=== PATIENT | female | born 1980 | race Caucasian/White ===

== ENCOUNTER 2025-03-14 09:08 | Day surgery (SDC) | payer OTHER ==
[2025-03-12 15:45] VITALS: BMI 30.3
[2025-03-14 09:35] VITALS: PULSE 66; TEMP 97.7
[2025-03-14 12:45] VITALS: RESP 20
[2025-03-14 13:08] VITALS: BP 148/78
== END 2025-03-14 12:45 | disposition home or self-care (01) ==
LOC: FASU-ENDO 09:08
PROVIDERS: ATTEND Internal Medicine Gastroenterology
PROC: 0DB68ZX Excision of Stomach, Via Natural or Artificial Opening Endoscopic, Diagnostic (ICD-10-PCS; 2025-03-14)
PROC: 0DB48ZX Excision of Esophagogastric Junction, Via Natural or Artificial Opening Endoscopic, Diagnostic (ICD-10-PCS; 2025-03-14)
PROC: 0DB98ZX Excision of Duodenum, Via Natural or Artificial Opening Endoscopic, Diagnostic (ICD-10-PCS; principal; 2025-03-14 11:06)
DX: K29.50 Unspecified chronic gastritis without bleeding (principal); K21.00 Gastro-esophageal reflux disease with esophagitis, without bleeding; R10.13 Epigastric pain
CPT/HCPCS: 81025; 88305-TC; 88341-TC; 88342-TC